=== PATIENT | female | born 1950 | race Caucasian/White ===

== ENCOUNTER 2017-01-07 10:31 | Emergency (ER) | payer MEDICARE, OTHER ==
[~2017-01-07] VITALS: Ht 160 cm; Wt 66.2 kg
[2017-01-07] MEDS ORDERED: BIMA01SOL (10:57)
[2017-01-07] MEDS ORDERED: PREM0.3T2 PO (10:57)
[2017-01-07] MEDS ORDERED: LEVO25TA5 PO (10:57)
[2017-01-07] MEDS ORDERED: ALLO10TA PO (10:57)
[2017-01-07] MEDS ORDERED: NS 500 ML IV ONE (11:30)
[2017-01-07 12:42] LABS: ALBUMIN 3.9 GM/DL (3.2-5.2); ALBUMIN/GLOBULIN RATIO 1.44 (1.00-1.93); ALKALINE PHOSPHATASE 35 U/L (45-117); ALT/SGPT 22 U/L (12-78); ANION GAP 10 MEQ/L (8-16); AST/SGOT 16 U/L (15-37); BILIRUBIN,DIRECT 0.1 MG/DL (0.0-0.2); BILIRUBIN,TOTAL 0.6 MG/DL (0.2-1.0); BLOOD UREA NITROGEN 11 MG/DL (7-18); CALCIUM LEVEL 8.9 MG/DL (8.8-10.2); CARBON DIOXIDE LEVEL 23 MEQ/L (21-32); CHLORIDE LEVEL 106 MEQ/L (98-107); CREATININE FOR GFR 0.68 MG/DL (0.55-1.02); GLOMERULAR FILTRATION RATE > 60.0 (>45); GLUCOSE, FASTING 84 MG/DL (80-110); SODIUM LEVEL 139 MEQ/L (136-145); TOTAL PROTEIN 6.6 GM/DL (6.4-8.2)
[2017-01-07] MEDS ORDERED: ISOVUE-370 76% 100ML VIAL (Q9967) As Ordered ONE (12:47)
--- NOTE | 2017-01-07 13:22 | REP ---
Clinical: Lower quadrant pain. Technique: Axial contrast enhanced images from the lung bases to the pubic symphysis using 100 ml Isovue 370 intravenous contrast material with coronal and sagittal re-formations. Comparison: 07/25/2014. Findings: Diffuse diverticulosis is appreciated with acute diverticulitis involving the mid sigmoid colon (images 85 - 95). Findings include an area of mural thickening with pericolonic stranding and focally inflamed diverticula. No evidence for bowel obstruction. The remainder of the enteric system is grossly unremarkable. Normal terminal ileum and appendix are identified in the right lower quadrant. No free fluid or drainable collection/abscess. No free air. Liver, spleen, pancreas, gallbladder, bilateral adrenal glands and kidneys are normal. Pelvis demonstrates normal bladder and age-appropriate uterus/adnexa. No pelvic fluid. No intraperitoneal or retroperitoneal adenopathy. Vascular structures are normal for age and without aneurysm or dissection. Musculoskeletal structures demonstrate age-related degenerative change without focal osseous abnormality. Lung bases are clear. Impression: Acute sigmoid diverticulitis. No evidence for bowel obstruction, free air / perforation, free fluid or drainable collection/abscess. Signed by Constantin Ivy MD 01/07/2017 01:13 P
[2017-01-07] MEDS ORDERED: fentaNYL 100 MCG/2 ML INJECTION (J3010) IV ONE (13:30)
[2017-01-07 13:35] LABS: ADD MANUAL DIFFER YES; DIFF SLIDE NUMBER 116; MEAN CORPUSCULAR HEMOGLOBIN 28.7 pg (27.0-33.0); MEAN CORPUSCULAR HGB CONC 32.9 g/dl (32.0-36.5); MEAN CORPUSCULAR VOLUME 87.1 fl (80.0-96.0); PLATELET COUNT, AUTOMATED 227 k/mm3 (150-450); RED CELL DISTRIBUTION WIDTH 13.5 % (11.5-14.5); WHITE BLOOD COUNT 12.8 K/mm3 (4.0-10.0)
[2017-01-07 13:36] LABS: INR 0.87
[2017-01-07] MEDS ORDERED: CIPROFLOXACIN 400 MG in APPROPRIATE DILUENT 1 EA IV ONE (13:45)
[2017-01-07] MEDS ORDERED: metroNIDAZOLE 500 MG in APPROPRIATE DILUENT 1 EA IV ONE (13:45)
[2017-01-07 14:37] LABS: BANDS 2 % (< 11); BASOPHILS 2 % (0-4); EOSINOPHILS 4 % (0-5)
[2017-01-07 14:39] LABS: ANISOCYTOSIS 1+
[2017-01-07 14:40] LABS: STOMATOCYTES 1+
[2017-01-07 14:52] VITALS: BP 160/72
[2017-01-07] MEDS ORDERED: FLAG500T PO (15:11)
[2017-01-07] MEDS ORDERED: CIPR-249 PO (15:12)
--- NOTE | 2017-01-07 21:25 | ECGEPIP ---
Stationary ECG Study [facility] - ED Test Date: 2017-01-07 Pat Name: DALIA ORTEZ Department: Room: - Gender: F Skin Lap Bonder: noemy : 1950 Requested By: ИРИНА Jackman Order Number: [id number] Reading MD: Layla Guaman Measurements Intervals [place] Rate: 62 P: 36 AR: 190 QRS: -19 QRSD: 75 T: -22 QT: 391 QTc: 399 Interpretive Statements SINUS RHYTHM POSSIBLE LEFT ATRIAL ENLARGEMENT LOW QRS VOLTAGE IN PRECORDIAL LEADS POSSIBLE ANTERIOR MYOCARDIAL INFARCTION, PROBABLY OLD INFERIOR MYOCARDIAL INFARCTION, OF INDETERMINATE AGE NO PRIOR FOR COMPARISON Electronically Signed On 01-07-2017 21:25:19 EDT by Layla Guaman
== END 2017-01-07 16:21 | disposition home or self-care (01) ==
LOC: M ED 10:31
DX: K57.92 Diverticulitis of intestine, part unspecified, without perforation or abscess without bleeding (principal)
CPT/HCPCS: 36415; 74177; 80048; 80076; 83605; 83690; 85025; 85610; 85730; 93005; 93041; 96374; 96375; 99284; J0744; J3010; Q9967

== ENCOUNTER 2019-01-01 07:14 | Day surgery (SDC) | payer MEDICARE, BC ==
[~2019-01-01] VITALS: Ht 160 cm; Wt 61.2 kg
[~2019-01-01 07:14] MED LIST: ACET500T15 PO; ALLO10TA PO; BIMA01SOL; CIPR-249 PO; FLAG500T PO; FLON1SPR NARES; HYDR-3715 PO; LEVO25TA5 PO; NS 1,000 ML IV ONE; OMEPPOW18 PO; ONDA4TAB6 PO; PREM0.3T2 PO
[2019-01-01] MEDS ORDERED: LIDOCAINE 2% INJ 100 MG/5 ML SDV (FOR ANES.) As Ordered ONE (07:15)
[2019-01-01] MEDS ORDERED: PROPOFOL 200 MG/20 ML VIAL As Ordered ONE (07:15)
--- NOTE | 2019-01-01 09:54 | ROOR ---
Patient Name: Yessi Sosa Procedure Date: 01/01/2019 8:55 AM Date of : 1950 Age: 68 Room: [facility] Gender: Female Note Status: Finalized Procedure: Colonoscopy Indications: Follow-up of diverticulitis Providers: Phoenix Duckworth MD Referring MD: SREEDHAR BARONE DO Requesting Provider: Medicines: Monitored Anesthesia Care Complications: No immediate complications. Procedure: Pre-Anesthesia Assessment: - Prior to the procedure, a History and Physical was performed, and patient medications and allergies were reviewed. The patient is competent. The risks and benefits of the procedure and the sedation options and risks were discussed with the patient. All questions were answered and informed consent was obtained. Patient identification and proposed procedure were verified by the physician, the nurse and the anesthesiologist in the procedure room. Mental Status Examination: alert and oriented. Airway Examination: normal oropharyngeal airway and neck mobility. Respiratory Examination: clear to auscultation. CV Examination: normal. Prophylactic Antibiotics: The patient does not require prophylactic antibiotics. Prior Anticoagulants: The patient has taken no previous anticoagulant or antiplatelet agents. ASA Grade Assessment: II - A patient with mild systemic disease. After reviewing the risks and benefits, the patient was deemed in satisfactory condition to undergo the procedure. The anesthesia plan was to use monitored anesthesia care (MAC). Immediately prior to administration of medications, the patient was re-assessed for adequacy to receive sedatives. The heart rate, respiratory rate, oxygen saturations, blood pressure, adequacy of pulmonary ventilation, and response to care were monitored throughout the procedure. The physical status of the patient was re-assessed after the procedure. The Colonoscope was introduced through the anus and advanced to the terminal ileum, with identification of the appendiceal orifice and IC valve. The colonoscopy was performed without difficulty. The patient tolerated the procedure well. The quality of the bowel preparation was good. The terminal ileum, ileocecal valve, appendiceal orifice, and rectum were photographed. Scope insertion time was 6 minutes. Scope withdrawal time was 10 minutes. The total duration of the procedure was 16 minutes. Findings: The perianal and digital rectal examinations were normal. The terminal ileum appeared normal. A 10 mm polyp was found in the transverse colon. The polyp was sessile. The polyp was removed with a hot snare. Resection and retrieval were complete. Verification of patient identification for the specimen was done by the physician and nurse using the patient's name, date and medical record number. Estimated blood loss was minimal. A few sessile polyps were found in the recto-sigmoid colon. The polyps were 3 to 4 mm in size. These polyps were removed with a cold snare. Resection and retrieval were complete. Multiple small and large-mouthed diverticula were found from sigmoid to ascending colon. There was narrowing of the colon in association with the diverticular opening. There was no evidence of diverticular bleeding. Non-bleeding external and internal hemorrhoids were found during retroflexion. The hemorrhoids were medium-sized. Impression: - The examined portion of the ileum was normal. - One 10 mm polyp in the transverse colon, removed with a hot snare. Resected and retrieved. - A few 3 to 4 mm polyps at the recto-sigmoid colon, removed with a cold snare. Resected and retrieved. - Severe diverticulosis from sigmoid to ascending colon. There was narrowing of the colon in association with the diverticular opening. There was no evidence of diverticular bleeding. - Non-bleeding external and internal hemorrhoids. Recommendation: - Patient has a contact number available for emergencies. The signs and symptoms of potential delayed complications were discussed with the patient. Return to normal activities tomorrow. Written discharge instructions were provided to the patient. - High fiber diet. - Continue present medications. - Await pathology results. - Repeat colonoscopy in 3 - 5 years for surveillance based on pathology results. - Based on the biopsy results you will receive a phone call from GI clinic in 2-3 weeks to review the pathology results AND/OR your results will be faxed to your Primary care physician. - Return to primary care physician. Phoenix Duckworth MD Phoenix Duckworth MD 01/01/2019 9:53:56 AM Electronically signed by Phoenix Duckworth MD Number of Addenda: 0 Note Initiated On: 01/01/2019 8:55 AM Estimated Blood Loss: Estimated blood loss was minimal.
[2019-01-01 10:03] VITALS: BP 144/69
== END 2019-01-01 10:06 | disposition home or self-care (01) ==
LOC: M OPP 07:14
PROVIDERS: ATTEND Internal Medicine Gastroenterology
DX: D37.4 Neoplasm of uncertain behavior of colon (principal); K63.5 Polyp of colon; K57.30 Diverticulosis of large intestine without perforation or abscess without bleeding; K64.8 Other hemorrhoids

== ENCOUNTER 2019-02-15 08:14 | Day surgery (SDC) | payer MEDICARE, BC ==
[~2019-02-15] VITALS: Ht 160 cm; Wt 61.7 kg
[~2019-02-15 08:14] MED LIST changes: +CALC-126 XX; +CALCTAB57 PO; +CHOLINE; +CO Q100C10 PO; +CVS1CAP2 PO; +CVS1CHW13 PO; +GRAP50CA3 PO; +HM V4000 PO; +LIDOCAINE 2% INJ 100 MG/5 ML SDV (FOR ANES.) As Ordered ONE; +MAGN100T PO; +MOOD400T PO; +OMEGCAP PO; +PROPOFOL 200 MG/20 ML VIAL As Ordered ONE; +PSEU120T3 PO; +PYCNOGENOL PO; +VITA-157 PO; +[UNRECOGNIZED DRUG - CODE] PO; +[UNRECOGNIZED DRUG - OTHER]; +[UNRECOGNIZED DRUG - OTHER] PO; +[UNRECOGNIZED DRUG - OTHER] PO
--- NOTE | 2019-02-15 10:13 | ROOR ---
Patient Name: Yessi Sosa Procedure Date: 02/15/2019 9:07 AM Date of : 1950 Age: 68 Room: [facility] Gender: Female Note Status: Finalized Procedure: Colonoscopy Indications: Therapeutic procedure Providers: Phoenix Duckworth MD Referring MD: SREEDHAR BARONE DO Requesting Provider: Medicines: Monitored Anesthesia Care Complications: No immediate complications. Procedure: Pre-Anesthesia Assessment: - Prior to the procedure, a History and Physical was performed, and patient medications and allergies were reviewed. The patient is competent. The risks and benefits of the procedure and the sedation options and risks were discussed with the patient. All questions were answered and informed consent was obtained. Patient identification and proposed procedure were verified by the physician, the nurse and the anesthesiologist in the procedure room. Mental Status Examination: alert and oriented. Airway Examination: normal oropharyngeal airway and neck mobility. Respiratory Examination: clear to auscultation. CV Examination: normal. Prophylactic Antibiotics: The patient does not require prophylactic antibiotics. Prior Anticoagulants: The patient has taken no previous anticoagulant or antiplatelet agents. ASA Grade Assessment: II - A patient with mild systemic disease. After reviewing the risks and benefits, the patient was deemed in satisfactory condition to undergo the procedure. The anesthesia plan was to use monitored anesthesia care (MAC). Immediately prior to administration of medications, the patient was re-assessed for adequacy to receive sedatives. The heart rate, respiratory rate, oxygen saturations, blood pressure, adequacy of pulmonary ventilation, and response to care were monitored throughout the procedure. The physical status of the patient was re-assessed after the procedure. The Colonoscope was introduced through the anus and advanced to the terminal ileum, with identification of the appendiceal orifice and IC valve. The colonoscopy was performed without difficulty. The patient tolerated the procedure well. The quality of the bowel preparation was good. The terminal ileum, ileocecal valve, appendiceal orifice, and rectum were photographed. Scope insertion time was 3 minutes. Scope withdrawal time was 11 minutes. The total duration of the procedure was 14 minutes. Findings: The perianal and digital rectal examinations were normal. The terminal ileum appeared normal. Ulcerated mucosa with no stigmata of recent bleeding were present at the hepatic flexure. Preparations were made for mucosal resection. Snare mucosal resection with snare retrieval was performed. A 15 mm area was resected. Resection and retrieval were complete. A slow ooze remained at the end of the procedure. To close a defect after polypectomy, two hemostatic clips were successfully placed. There was no bleeding at the end of the procedure. Estimated blood loss was minimal. Two sessile polyps were found in the sigmoid colon. The polyps were 5 to 6 mm in size. These polyps were removed with a cold biopsy forceps. Resection and retrieval were complete. Two sessile polyps were found in the rectum. The polyps were 3 to 4 mm in size. These polyps were removed with a cold biopsy forceps. Resection and retrieval were complete. Multiple small and large-mouthed diverticula were found from sigmoid to transverse colon. There was no evidence of diverticular bleeding. Non-bleeding external and internal hemorrhoids were found during retroflexion. The hemorrhoids were medium-sized. Impression: - The examined portion of the ileum was normal. - Mucosal ulceration. Clips were placed. - Two 5 to 6 mm polyps in the sigmoid colon, removed with a cold biopsy forceps. Resected and retrieved. - Two 3 to 4 mm polyps in the rectum, removed with a cold biopsy forceps. Resected and retrieved. - Moderate diverticulosis from sigmoid to transverse colon. There was no evidence of diverticular bleeding. - Non-bleeding external and internal hemorrhoids. - Mucosal resection was performed. Resection and retrieval were complete. Recommendation: - Patient has a contact number available for emergencies. The signs and symptoms of potential delayed complications were discussed with the patient. Return to normal activities tomorrow. Written discharge instructions were provided to the patient. - Clear liquid diet for 1 day, then advance as tolerated to high fiber diet. - Continue present medications. - Await pathology results. - Repeat colonoscopy in 1 year for surveillance based on pathology results. - Telephone GI clinic for pathology results in 2 weeks. - Telephone GI clinic if symptomatic today. - Return to primary care physician. Phoenix Duckworth MD Phoenix Duckworth MD 02/15/2019 10:12:48 AM Electronically signed by Phoenix Duckworth MD Number of Addenda: 0 Note Initiated On: 02/15/2019 9:07 AM Estimated Blood Loss: Estimated blood loss was minimal.
[2019-02-15 10:30] VITALS: BP 132/67
== END 2019-02-15 10:34 | disposition home or self-care (01) ==
LOC: M OPP 08:14
PROVIDERS: ATTEND Internal Medicine Gastroenterology
DX: K64.8 Other hemorrhoids (principal); K63.3 Ulcer of intestine; K62.1 Rectal polyp; K57.30 Diverticulosis of large intestine without perforation or abscess without bleeding; K63.5 Polyp of colon; Z79.899 Other long term (current) drug therapy; Z87.891 Personal history of nicotine dependence; Z80.0 Family history of malignant neoplasm of digestive organs; Z88.1 Allergy status to other antibiotic agents; Z91.030 Bee allergy status

== ENCOUNTER → 2019-10-21 | Outpatient (CLI) | payer MEDICARE, BC ==
[~2019-10-21] MED LIST changes: -LIDOCAINE 2% INJ 100 MG/5 ML SDV (FOR ANES.) As Ordered ONE; -NS 1,000 ML IV ONE; -PROPOFOL 200 MG/20 ML VIAL As Ordered ONE
--- NOTE | 2019-10-21 10:12 | REP ---
REASON FOR EXAM: Abdominal pain. Multiple ultrasonographic images of the liver show the hepatic parenchymal echo pattern to be within normal limits. There are no masses. There is no intrahepatic or extrahepatic ductal dilatation. The common bile duct measures between 3 and 4 mm. Multiple ultrasonographic images of the gallbladder show no abnormalities. There are no choleliths. There is no gallbladder wall thickening or pericholecystic edema. The imaged portion of the pancreas and right kidney are within normal limits. There is no evidence of free fluid in the abdomen. IMPRESSION: Negative right upper quadrant ultrasound exam as described above. Electronically Signed by Ruben Hernandez DO 10/21/2019 10:15 A
== END ==
LOC: M RAD 08:08
PROVIDERS: ATTEND Internal Medicine Gastroenterology
DX: R10.13 Epigastric pain (principal)

== ENCOUNTER → 2020-05-03 | Outpatient (CLI) | payer MEDICARE, BC | LOC: M LABSMTC 08:58 | PROVIDERS: ATTEND Anesthesiology | DX: Z01.812 Encounter for preprocedural laboratory examination (principal); Z20.828 Contact with and (suspected) exposure to other viral communicable diseases | CPT/HCPCS: C9803; U0003 ==

== ENCOUNTER 2020-05-08 08:15 | Day surgery (SDC) | payer MEDICARE, BC ==
[~2020-05-08] VITALS: Ht 160 cm; Wt 63.0 kg
[~2020-05-08 08:15] MED LIST changes: +NS 1,000 ML IV ONE
[2020-05-08] MEDS ORDERED: propofoL 200 MG/20 ML VIAL As Ordered ONE (08:19)
[2020-05-08] MEDS ORDERED: LIDOCAINE 2% 100MG/5ML SDV (FOR ANES.) As Ordered ONE (08:19)
[2020-05-08] MEDS ORDERED: ePHEDrine SULFATE 25 MG/5 ML(5MG/ML) SYRINGE As Ordered ONE (08:25)
--- NOTE | 2020-05-08 10:28 | ROOR ---
" Patient Name: Yessi Sosa Procedure Date: 05/08/2020 9:34 AM Date of : 1950 Age: 70 Room: [facility] Gender: Female Note Status: Finalized Procedure: Colonoscopy Indications: High risk colon cancer surveillance: Personal history of colon cancer Providers: Phoenix Duckworth MD Referring MD: SREEDHAR BARONE DO Requesting Provider: Medicines: Monitored Anesthesia Care Complications: No immediate complications. Procedure: Pre-Anesthesia Assessment: - Prior to the procedure, a History and Physical was performed, and patient medications and allergies were reviewed. The patient is competent. The risks and benefits of the procedure and the sedation options and risks were discussed with the patient. All questions were answered and informed consent was obtained. Patient identification and proposed procedure were verified by the physician, the nurse and the anesthesiologist in the procedure room. Mental Status Examination: alert and oriented. Airway Examination: normal oropharyngeal airway and neck mobility. Respiratory Examination: clear to auscultation. CV Examination: normal. Prophylactic Antibiotics: The patient does not require prophylactic antibiotics. Prior Anticoagulants: The patient has taken no previous anticoagulant or antiplatelet agents. ASA Grade Assessment: II - A patient with mild systemic disease. After reviewing the risks and benefits, the patient was deemed in satisfactory condition to undergo the procedure. The anesthesia plan was to use monitored anesthesia care (MAC). Immediately prior to administration of medications, the patient was re-assessed for adequacy to receive sedatives. The heart rate, respiratory rate, oxygen saturations, blood pressure, adequacy of pulmonary ventilation, and response to care were monitored throughout the procedure. The physical status of the patient was re-assessed after the procedure. The Colonoscope was introduced through the anus and advanced to the terminal ileum, with identification of the appendiceal orifice and IC valve. The colonoscopy was performed without difficulty. The patient tolerated the procedure well. The quality of the bowel preparation was good. The terminal ileum, ileocecal valve, appendiceal orifice, and rectum were photographed. Scope insertion time was 3 minutes. Scope withdrawal time was 10 minutes. The total duration of the procedure was 14 minutes. Findings: The perianal and digital rectal examinations were normal. The terminal ileum appeared normal. A 5 mm post polypectomy scar was found at the hepatic flexure. |The scar tissue was healthy in appearance. |. There is Clip with granulation tissue located the prior polypectomy site and tattoo janet located at the proximal and distal colon. Preparations were made for mucosal resection. Snare mucosal resection was performed. Resection and retrieval were complete. Verification of patient identification for the specimen was done by the physician and nurse using the patient's name, date and medical record number. Estimated blood loss was minimal. Multiple small and large-mouthed diverticula were found from sigmoid to ascending colon. There was no evidence of diverticular bleeding. Non-bleeding external and internal hemorrhoids were found during retroflexion. The hemorrhoids were medium-sized. Impression: - The examined portion of the ileum was normal. - Post-polypectomy scar at the hepatic flexure. - Severe diverticulosis from sigmoid to ascending colon. There was no evidence of diverticular bleeding. - Non-bleeding external and internal hemorrhoids. - Mucosal resection was performed. Resection and retrieval were complete. Recommendation: - Patient has a contact number available for emergencies. The signs and symptoms of potential delayed complications were discussed with the patient. Return to normal activities tomorrow. Written discharge instructions were provided to the patient. - High fiber diet. - Continue present medications. - Use fiber, for example Citrucel, Fibercon, Konsyl or Metamucil. - Await pathology results. - Repeat colonoscopy in 3 years for surveillance. - Telephone GI clinic for pathology results in 2 weeks. - Return to primary care physician. Phoenix Duckworth MD Phoenix Duckworth MD 05/08/2020 10:28:30 AM Electronically signed by Phoenix Duckworth MD Number of Addenda: 0 Note Initiated On: 05/08/2020 9:34 AM Estimated Blood Loss: Estimated blood loss was minimal."
[2020-05-08 10:30] VITALS: BP 190/73
== END 2020-05-08 10:52 | disposition home or self-care (01) ==
LOC: M OPP 08:15
PROVIDERS: ATTEND Internal Medicine Gastroenterology
DX: K57.30 Diverticulosis of large intestine without perforation or abscess without bleeding (principal); K64.8 Other hemorrhoids; Z98.890 Other specified postprocedural states; Z85.038 Personal history of other malignant neoplasm of large intestine; G47.30 Sleep apnea, unspecified; Z79.899 Other long term (current) drug therapy; Z91.030 Bee allergy status

== ENCOUNTER 2022-03-08 11:00 | Emergency (ER) | payer MEDICARE, BC ==
[~2022-03-08] VITALS: Ht 160 cm; Wt 59.5 kg
[~2022-03-08 11:00] MED LIST changes: -CALCTAB57 PO; +CALCTAB59 PO; -NS 1,000 ML IV ONE; -VITA-157 PO; +VITAE40CA PO
[2022-03-08] MEDS ORDERED: ACETAMINOPHEN 325 MG TAB PO ONE (13:30)
[2022-03-08 13:37] LABS: BASO # 0.1 10^3/uL (0.0-0.2); BASO % 0.4 % (0.0-1.0); EOS # 0.1 10^3/uL (0.0-0.5); EOS % 0.4 % (0.0-3.0); HEMATOCRIT 45.7 % (36.0-47.0); HEMOGLOBIN 14.6 g/dl (12.0-15.5); LYMPH # 1.8 10^3/uL (1.5-5.0); LYMPH % 13.7 % (24.0-44.0); MEAN CORPUSCULAR HEMOGLOBIN 28.3 pg (27.0-33.0); MEAN CORPUSCULAR HGB CONC 31.9 g/dl (32.0-36.5); MEAN CORPUSCULAR VOLUME 88.7 fl (80.0-96.0); MONO # 0.9 10^3/uL (0.0-0.8); MONO % 6.3 % (2.0-8.0); NEUTROPHILS # 10.6 10^3/uL (1.5-8.5); NEUTROPHILS % 78.8 % (36.0-66.0); PLATELET COUNT, AUTOMATED 332 10^3/uL (150-450); RED BLOOD COUNT 5.15 10^6/uL (4.00-5.40); WHITE BLOOD COUNT 13.4 10^3/uL (4.0-10.0)
[2022-03-08 14:14] LABS: ALBUMIN 4.5 GM/DL (3.2-5.2); ALT/SGPT 28 U/L (12-78); BILIRUBIN,DIRECT 0.2 MG/DL (0.0-0.2); BILIRUBIN,TOTAL 0.5 MG/DL (0.2-1.0); BLOOD UREA NITROGEN 7 MG/DL (7-18); CARBON DIOXIDE LEVEL 25 MEQ/L (21-32); CHLORIDE LEVEL 103 MEQ/L (98-107); CREATININE FOR GFR 0.57 MG/DL (0.55-1.30); GLOMERULAR FILTRATION RATE > 60.0 (>39); GLUCOSE, FASTING 89 MG/DL (70-100); LIPASE 127 U/L (73-393); POTASSIUM SERUM 4.4 MEQ/L (3.5-5.1); SODIUM LEVEL 135 MEQ/L (136-145); TOTAL PROTEIN 7.7 GM/DL (6.4-8.2)
[2022-03-08] MEDS ORDERED: ISOVUE-370 76% 100ML VIAL As Ordered ONE (14:14)
[2022-03-08] MEDS ORDERED: metroNIDAZOLE (FLAGYL) 500MG TABLET PO ONE (15:10)
[2022-03-08] MEDS ORDERED: CIPROFLOXACIN 500MG TABLET PO ONE (15:10)
[2022-03-08] MEDS ORDERED: CIPR-249 PO (15:31)
[2022-03-08] MEDS ORDERED: METR-265 PO (15:31)
[2022-03-08 15:39] VITALS: BP 160/90
== END 2022-03-08 15:49 | disposition home or self-care (01) ==
LOC: M ED 11:00
DX: K57.32 Diverticulitis of large intestine without perforation or abscess without bleeding (principal); K76.0 Fatty (change of) liver, not elsewhere classified; K21.9 Gastro-esophageal reflux disease without esophagitis; E03.9 Hypothyroidism, unspecified; Z79.890 Hormone replacement therapy; Z79.899 Other long term (current) drug therapy; Z91.030 Bee allergy status
CPT/HCPCS: 74177; 80047; 80048; 80076; 83690; 85025; 99284; Q9967